=== PATIENT | male | born 1995 | race Caucasian/White ===

== ENCOUNTER 2025-02-26 18:28 | Emergency (ER) | payer MEDICAID ==
[~2025-02-26] VITALS: Ht 180.3 cm; Wt 84.7 kg
--- NOTE | 2025-02-26 18:39 | ELECTROCARDIOGRAPH REPORT ---
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 Christiano Dinh Measurements Intervals [place] Rate: 107 P: 53 OK: 168 QRS: -4 QRSD: 91 T: 22 QT: 300 QTc: 401 Interpretive Statements Sinus tachycardia RSR' in V1 or V2, right VCD or RVH ST elev, probable normal early repol pattern Electronically Signed On 02-28-2025 21:14:[address] Christiano Dinh Please click the below link to view image of tracing.
[2025-02-26 18:54] LABS: MEAN PLATELET VOLUME 7.4 FL (7.4-10.4); RED CELL DISTRIBUTION WIDTH 17.4 % (11.5-14.5)
--- NOTE | 2025-02-26 18:58 | RADIOLOGY REPORT ---
EXAM: DI CHEST,SINGLE VIEW TECHNIQUE: Single frontal chest radiograph CLINICAL HISTORY: CP COMPARISON: None FINDINGS/IMPRESSION: The lungs are clear. The cardiomediastinal silhouette is unremarkable. No pleural effusion or pneumothorax. No acute osseous abnormality.
[2025-02-26 19:11] LABS: CREATININE 1.24 MG/DL (0.60-1.10); TOTAL CARBON DIOXIDE 28.7 MMOL/L (24-32); eCRCL 95 ML/MIN; eGFR 70 ML/MIN
[2025-02-26 19:16] LABS: PRO BRAIN NATRIURETIC PEPTIDE < 30 PG/ML (0-125)
--- NOTE | 2025-02-26 19:40 | Physician Documentation ---
History of Present Illness Chief Complaint: Dizziness Stated Complaint: SOB/DIZZINESS OK to notify your PCP?: Yes Primary Medical Doctor: NONE Source: patient Mode of Arrival: POV Exam Limitations: no limitations HPI This is a 29-year-old male who presents with 2-3 days of nausea, emesis, epigastric pain extending into his chest, shortness of breath, and feeling of dizziness. Additionally notes fatigue and loss of appetite. He as felt feverish for the past 2 days. Patient reports history of hiatal hernia. Patient does not have a PCP and is currently attempting to be established. Patient denies any other associated symptoms. Patient denies any other alleviating or exacerbating factors at this time. Medication Reconciliation Allergies: Coded Allergies: No Known Allergies (Unverified , 08/03/16) Scheduled Ondansetron 8mg ODT (Ondansetron Odt), 1 TAB PO Q6H Scheduled PRN Acetaminophen (Tylenol Extra Strength), 2 TAB PO Q6H PRN PRN for pain or fever Past Medical History Past Medical History: No Pertinent History Past Surgical History: no surgical history Alcohol Use: Heavy Drug Use: none Lives with: Mother Lives In: Home Occupation: unemployed Review of Systems All Other Systems at this time: Reviewed and Negative ROS As stated above in the HPI, otherwise all systems are reviewed and negative. Physical Exam Vital Signs: RN Vital Signs have been reviewed: Yes, Temperature: 99.7, Source: Oral, Heart Rate: 106, Respiratory Rate: 16, BP: 117/80, Pulse Oximetry: 97, Weight: 84.700 Oxygen Flow Rate: 0 Pulse Oximetry Reflects: adequate oxygenation Physical Exam General: Patient is awake, alert, oriented x4 in no acute distress and well appearing.~ Head: Normocephalic and atraumatic. Eyes: Conjunctival normal. EOMI. PERRL. ENT: Mucous membranes moist. Neck: Supple, trachea is midline. Chest: Clear to auscultation bilaterally without rales, rhonchi, or wheezes. There is no accessory muscle use or retractions. Cardiac: RRR without murmurs, gallops, or rubs. Abd: Soft, nondistended, nontender, with normoactive bowel sounds. No guarding, rebound, or rigidity. Extremities: Normal strength. Normal range of motion. No deformities or edema. Back: No midline spinal or CVA tenderness. Skin: Warm and dry with no significant rash appreciated. Neuro: Cranial nerves II-XII grossly intact. No focal neuro deficits. Patient ambulating without difficulty. Progress Results/Orders Results/Orders Vital Signs 02/26/25 18:47 Temp 99.7 Pulse 106 Resp 16 B/P (MAP) 117/80 Pulse Ox 97 O2 Flow Rate 0 Laboratory Tests Test 02/26/25 18:33 White Blood Count 8.5 Red Blood Count 5.74 Hemoglobin 12.4 L Hematocrit 39.4 L Mean Corpuscular Volume 68.6 L Mean Corpuscular Hemoglobin 21.6 L Mean Corpuscular Hemoglobin Concent 31.5 L Red Cell Distribution Width 17.4 H Platelet Count 285 Mean Platelet Volume 7.4 Neutrophils (%) (Auto) 71.0 Lymphocytes (%) (Auto) 15.9 L Monocytes (%) (Auto) 9.8 Eosinophils (%) (Auto) 2.8 Basophils (%) (Auto) 0.5 Neutrophils # (Auto) 6.0 Lymphocytes # (Auto) 1.4 Monocytes # (Auto) 0.8 Eosinophils # (Auto) 0.2 Basophils # (Auto) 0.0 CBC Comment Sodium Level 141 Potassium Level 4.5 Chloride Level 104 Carbon Dioxide Level 28.7 Anion Gap 8 Blood Urea Nitrogen 15 Creatinine 1.24 H Estimated GFR/1.73 m2 70 BUN/Creatinine Ratio 12.1 Glucose Level 109 H Calcium Level 8.9 Total Bilirubin 0.3 Aspartate Amino Transf (AST/SGOT) 17 Alanine Aminotransferase (ALT/SGPT) 22 Alkaline Phosphatase 75 Troponin I High Sensitivity 4 Pro-B-Type Natriuretic Peptide < 30 Total Protein 8.0 Albumin 3.6 Globulin 4.4 H Albumin/Globulin Ratio 0.8 L Lipase 34 Chemistry Comments EKG/XRAY/CT/US/VASC/MRI Chest X-Ray : Interpreted By: radiologist Views: 1 VIEW Additional Comments EXAM: DI CHEST,SINGLE VIEW TECHNIQUE: Single frontal chest radiograph CLINICAL HISTORY: CP COMPARISON: None FINDINGS/IMPRESSION: The lungs are clear. The cardiomediastinal silhouette is unremarkable. No pleural effusion or pneumothorax. No acute osseous abnormality. Electronically Signed by:JESSICA MARTINEZ MD Date & Time: 02/26/251855 Dictated by: JESSICA MARTINEZ MD Dictation date and time: 02/26/25 1844 Primary Care Provider: NO PRIMARY CARE PROVIDER cc: JASE LEE MD ~ Medical Decision Making Additional information obtaine: N/A Findings Patient presents to the emergency room that has generalized symptoms that has per HPI. Differentials include but are not limited to viral syndrome, pneumonia, urinary tract infection, electrolyte deficiencies therefore labs ordered which were reassuring. Given generalized symptoms with fever and feel he was suffering from a virus and we will treat him accordingly. ER precautions discussed. Differential Dx:Considerations: Appendicitis, Cholelithasis Departure Time of Disposition: 00:18 Disposition: 01 HOME / SELF CARE / HOMELESS Impression: Primary Impression: Viral illness Condition: Stable Discharge Instructions: Viral Illness, Adult Additional Instructions: Follow up with PCP for further evaluation and care. Return to the ED if you develop any new or worsening symptoms. Referrals: NO PRIMARY CARE PROVIDER (PCP) Prescriptions Acetaminophen (Tylenol Extra Strength) 500 Mg Tablet 2 TAB PO Q6H PRN PRN for pain or fever, #30 TAB Prov: JASE LEE MD 02/27/25 Ondansetron 8mg ODT (Ondansetron Odt) 8 Mg Tab.rapdis 1 TAB PO Q6H for nausea/vomiting for 3 Days, #12 TAB 0 Refills Prov: JASE LEE MD 02/27/25 Signature Scribe Signature: Scribed for Jase Lee MD by Nik Snyder . 02/27/25 00:18 Attestation: The note accurately reflects work and decisions made by me.Jase Lee MD 02/27/25 05:10 SAVANNAH RALPH Feb 26, 2025 19:39 NIK GUERRA Feb 27, 2025 00:19 JASE LEE MD Feb 27, 2025 05:10
[2025-02-26 20:10] LABS: PLATELET ESTIMATE NORMAL
[2025-02-26 20:11] LABS: ELLIPTOCYTES FEW
[2025-02-26] MEDS: ondansetron 4mg rapidly disintigrating tab PO ONE (23:39)
[2025-02-27 00:07] LABS: LEUKOCYTE ESTERASE ,URINE NEGATIVE (Neg); NITRITES, URINE NEGATIVE (Neg); OCCULT BLOOD,URINE NEGATIVE (Neg)
[2025-02-27 00:08] LABS: UA COLLECTION TYPE CLN CATCH MIDSTREAM
[2025-02-27] MEDS ORDERED: ONDA-245 PO (00:13)
[2025-02-27] MEDS ORDERED: ACET-1025 PO (00:13)
[2025-02-27 00:33] VITALS: BP 112/74; PULSE 98; RESP 16; TEMP 99.6; O2SAT 98
== END 2025-02-27 00:44 | disposition home or self-care (01) ==
LOC: ER 18:28
DX: B34.9 Viral infection, unspecified (principal); F10.90 Alcohol use, unspecified, uncomplicated; Z79.899 Other long term (current) drug therapy; Z56.0 Unemployment, unspecified; Y90.9 Presence of alcohol in blood, level not specified
CPT/HCPCS: 36415; 71045; 80053; 81003; 83690; 83880; 84484; 85008; 85025; 93005; 99285